=== PATIENT | female | born 2005 | race Two or more races ===

== ENCOUNTER 2024-03-05 14:10 | Emergency (ER) | payer OTHER ==
[2024-03-05 14:19] VITALS: BP 100/58; PULSE 98; RESP 20; TEMP 98.4; BMI 19.5
[2024-03-05] MEDS ORDERED: ONDANSETRON 4 MG/2 ML VIAL ONE (15:21)
[2024-03-05] MEDS: SODIUM CHLORIDE 0.9% 500 ML INFUS.BAG IV ONE (15:28)
[2024-03-05] MEDS: ONDANSETRON 4 MG/2 ML VIAL IVPUSH ONE (15:28)
[2024-03-05 15:33] LABS: BASO % 0.7 % (0-2.0); EOS % 2.3 % (0-4.5); HEMATOCRIT 39.6 % (32.4-45.2); HEMOGLOBIN 13.1 GM/dL (10.7-15.3); MCH 25.8 pg (25.7-33.7); MCHC 33.2 g/dl (32.0-36.0); MEAN CELL VOLUME 77.7 fl (80-96); MEAN PLT VOLUME 7.7 fl (7.5-11.1); MONO % 5.6 % (3.8-10.2); NEUT % 61.4 % (42.8-82.8); PLATELET COUNT 289 10^3/uL (134-434); RBC 5.09 M/mm3 (3.60-5.2); RDW 13.3 % (11.6-15.6); WHITE BLOOD COUNT 7.3 K/mm3 (4.0-10.0)
[2024-03-05 15:36] LABS: EPI CELLS 2 /uL (0-25.1); HYALINE CASTS 0 /uL (0-3.1); URINE APPEARANCE CLEAR; URINE BACTERIA 97 /uL (0-1359); URINE BILIRUBIN NEGATIVE (NEGATIVE); URINE COLOR YELLOW; URINE GLUCOSE (UA) NEGATIVE (NEGATIVE); URINE KETONE NEGATIVE (NEGATIVE); URINE LEUK ESTERASE NEGATIVE (NEGATIVE); URINE NITRITE NEGATIVE (NEGATIVE); URINE PROTEIN NEGATIVE (NEGATIVE); URINE RBC 9 /uL (0-23.9); URINE UROBILINOGEN 0.2 mg/dL (0.2-1.0); URINE WBC 5 /uL (0-25.8)
[2024-03-05 16:00] LABS: POTASSIUM 3.7 mmol/L (3.5-5.1)
[2024-03-05 16:01] LABS: CALCIUM 9.6 mg/dL (8.5-10.1)
[2024-03-05 16:02] LABS: ALBUMIN 4.6 g/dl (3.4-5.0); BLOOD UREA NITROGEN 9.1 mg/dL (7-18)
[2024-03-05 16:05] LABS: CREATININE 0.6 mg/dL (0.55-1.3)
[2024-03-05 16:07] LABS: BILIRUBIN,TOTAL 0.6 mg/dL (0.2-1); TOT PROT 8.2 g/dl (6.4-8.2)
[2024-03-05 16:56] LABS: HIV INTERPRETATION NEGATIVE (NEGATIVE)
== END 2024-03-05 20:50 | disposition home or self-care (01) ==
LOC: JER 14:10
PROC: 3E033GC Introduction of Other Therapeutic Substance into Peripheral Vein, Percutaneous Approach (ICD-10-PCS; principal; 2024-03-05)
DX: O20.0 Threatened abortion (principal); O26.891 Other specified pregnancy related conditions, first trimester; R10.2 Pelvic and perineal pain; O99.891 Other specified diseases and conditions complicating pregnancy; M54.50 Low back pain, unspecified; Z3A.01 Less than 8 weeks gestation of pregnancy
CPT/HCPCS: 36415; 76817-TC; 80053; 81003; 84702; 84703; 85025; 86803; 86850; 86900; 86901; 87086; 87389; 99284-25

== ENCOUNTER 2024-03-08 16:11 | Emergency (ER) | payer OTHER ==
[2024-03-08 16:31] VITALS: BP 93/57; PULSE 84; RESP 18; TEMP 97.4; BMI 17.6
== END 2024-03-08 18:59 | disposition home or self-care (01) ==
LOC: JER 16:11
DX: O03.9 Complete or unspecified spontaneous abortion without complication (principal)
CPT/HCPCS: 36415; 84702; 99283-25